=== PATIENT | female | born 1985 | race Caucasian/White ===

== ENCOUNTER 2018-03-08 10:30 | Inpatient (IN) | payer OTHER ==
[~2018-03-08] VITALS: Ht 165.1 cm; Wt 73.0 kg
[2018-03-08] VITALS (13 sets, daily range): BP systolic 81–102; BP diastolic 46–68
[~2018-03-08 10:30] MED LIST: LEVOXYL125 MCG PO
[2018-03-08] MEDS ORDERED: GAS-X125 M1 PO (10:42)
[2018-03-08] MEDS ORDERED: IBUPROFEN 400400 M2 PO (10:42)
[2018-03-08] MEDS ORDERED: TYLENOL EXTRA500 MG PO (10:42)
[2018-03-08 10:59] LABS: CALCIUM 7.3 mg/dL (8.5-10.1); CREATININE 0.4 mg/dL (0.6-1.3)
[2018-03-08 11:03] LABS: ALBUMIN 1.9 g/dL (3.4-5.0); TOTAL BILIRUBIN 12.3 mg/dL (<0.1-1.0); TOTAL PROTEIN 5.9 g/dL (6.4-8.2)
[2018-03-08 11:07] LABS: HEMOGLOBIN 9.2 gm/dL (12.0-15.0); MCV 94.6 fL (80.0-100.0); NUCLEATED RBCS 0 /100WBC
[2018-03-08 11:08] LABS: POTASSIUM 2.3 mmol/L (3.5-5.1)
[2018-03-08 11:09] LABS: HEMATOCRIT 26.5 % (37.0-47.0); MCH 32.9 pg (26.0-34.0); MCHC 34.8 g/dL (28.0-37.0); MPV 10.4 fl. (7.2-11.1); PLATELET COUNT* 131 thou/uL (150-400); RDW-CV 18.6 % (10.5-14.5); WBC 18.3 thou/uL (4.0-11.0)
[2018-03-08 11:37] LABS: ABSOLUTE LYMPHOCYTES 0.7 thou/uL (0.8-5.3); ABSOLUTE MONOCYTES 1.5 thou/uL (0.0-1.2); ABSOLUTE NEUTROPHILS 16.1 thou/uL (1.6-8.1); ATYPICAL LYMPHS 1 %
[2018-03-08 11:38] LABS: CALCIUM 7.1 mg/dL (8.5-10.1); CREATININE 0.4 mg/dL (0.6-1.3)
[2018-03-08 11:38] LABS: ANISOCYTOSIS 1+; PLATELET ESTIMATE ADEQUATE
[2018-03-08 11:40] LABS: POTASSIUM 2.4 mmol/L (3.5-5.1)
[2018-03-08 11:49] LABS: URINE BLOOD TRACE (Negative); URINE CLARITY CLEAR; URINE COLOR DARK YELLOW; URINE GLUCOSE-RANDOM TRACE (Negative); URINE KETONES TRACE (Negative); URINE LEUKOCYTES-REFLEX NEGATIVE (Negative); URINE NITRITE-REFLEX NEGATIVE (Negative); URINE PROTEIN TRACE (Negative); URINE SPECIFIC GRAVITY 1.015 (1.005-1.030)
[2018-03-08 11:50] LABS: ICTOTEST (BILI CONFIRMATORY) Positive (Negative); URINE BILIRUBIN 3+ (Negative)
[2018-03-08 11:52] LABS: APTT 45.5 Seconds (25.0-31.3); INR 2.2; PROTIME 22.7 Seconds (9.20-11.50)
[2018-03-08 13:16] LABS: HEMATOCRIT 22.3 % (37.0-47.0); HEMOGLOBIN 7.8 gm/dL (12.0-15.0)
[2018-03-08 13:19] LABS: CALCIUM 6.7 mg/dL (8.5-10.1); CREATININE 0.4 mg/dL (0.6-1.3); MAGNESIUM 1.3 mg/dL (1.8-2.4)
[2018-03-08 13:22] LABS: POTASSIUM 2.4 mmol/L (3.5-5.1)
[2018-03-08 13:32] LABS: AMMONIA < 10 umol/L (11-32); DIRECT BILIRUBIN 8.5 mg/dL (<0.1-0.3); TOTAL BILIRUBIN 10.4 mg/dL (<0.1-1.0)
[2018-03-08 15:05] LABS: CALCIUM 6.4 mg/dL (8.5-10.1); CREATININE 0.4 mg/dL (0.6-1.3)
[2018-03-08 15:17] LABS: POTASSIUM 2.3 mmol/L (3.5-5.1)
[2018-03-08 17:23] LABS: BF RBC 219 /mm3; BF WBC 51 /mm3
[2018-03-08 17:45] LABS: INR 2.1; PROTIME 21.6 Seconds (9.20-11.50)
[2018-03-08 19:01] LABS: BF LYMPHOCYTES 70 %; BF MONOCYTES 29 %; BF POLYS 1 %
[2018-03-08 19:08] LABS: CLARITY CLEAR; COLOR YELLOW; SOURCE ASCITES; TOTAL VOLUME 460 ml
[2018-03-08 19:55] LABS: HEMATOCRIT 20.5 % (37.0-47.0); HEMOGLOBIN 7.1 gm/dL (12.0-15.0)
[2018-03-08 20:02] LABS: CALCIUM 6.3 mg/dL (8.5-10.1); CREATININE 0.5 mg/dL (0.6-1.3); MAGNESIUM 1.8 mg/dL (1.8-2.4)
[2018-03-08 20:03] LABS: POTASSIUM 3.9 mmol/L (3.5-5.1)
[2018-03-08 23:11] LABS: HEPATITIS B SURFACE AG Negative (Negative)
[2018-03-09] VITALS (63 sets, daily range): BP systolic 74–106; BP diastolic 50–71
[2018-03-09 03:12] LABS: MCH 32.8 pg (26.0-34.0); MCHC 34.5 g/dL (28.0-37.0); MCV 94.8 fL (80.0-100.0); MPV 9.8 fl. (7.2-11.1); RBC 1.95 mil/uL (4.20-5.00); RDW-CV 19.1 % (10.5-14.5); WBC 11.2 thou/uL (4.0-11.0)
[2018-03-09 03:31] LABS: HEMATOCRIT 18.5 % (37.0-47.0); HEMOGLOBIN 6.4 gm/dL (12.0-15.0)
[2018-03-09 03:46] LABS: CALCIUM 6.5 mg/dL (8.5-10.1); CREATININE 0.5 mg/dL (0.6-1.3); POTASSIUM 4.7 mmol/L (3.5-5.1)
[2018-03-09 03:47] LABS: INR 2.5; PROTIME 25.4 Seconds (9.20-11.50)
[2018-03-09 03:50] LABS: MAGNESIUM 1.9 mg/dL (1.8-2.4); TOTAL BILIRUBIN 10.4 mg/dL (<0.1-1.0); TOTAL PROTEIN 4.8 g/dL (6.4-8.2)
[2018-03-09 08:19] LABS: HEMOGLOBIN 6.4 gm/dL (12.0-15.0)
[2018-03-09 08:22] LABS: HEMATOCRIT 18.7 % (37.0-47.0)
--- NOTE | 2018-03-09 08:50 | CON ---
[address] [address] CONSULTATION Name: CARLOS KELLER Room: [address] IN .R.#: [id number] Admission: 03/08/18 Attend Phys: Francisco Taylor MD Discharge: Date of : 81 Report #: [id number] THIS REPORT FOR: //name// CC: Ermelinda Taylor DATE OF SERVICE: 03/08/2018 NEPHROLOGY CONSULTATION CONSULTING PHYSICIAN: Francisco Taylor MD REASON FOR NEPHROLOGY CONSULTATION: Severe hyponatremia. REASON FOR ADMISSION: Jaundice and the patient was feeling very tired and throwing up at least for the last 1 week. HISTORY OF PRESENT ILLNESS: This is a 32-year-old female, who drinks alcohol daily, drinks about 1 liter of wine a day, who was brought in by her because she was having increasing drowsiness, light colored stools and was also throwing up every night. The patient has not eaten anything except for 1 yogurt a day for the last 1 week and has been drinking, and the last alcoholic drink was this morning. On lab check when she presented to the Emergency Room, sodium was found to be 102, potassium was 2.4, bicarbonate was 37, creatinine was 0.4. White count was 18,000, hemoglobin was 9.2, which later dropped to 7.8 and INR was 2.2. She also has a total bilirubin of 10 and direct bilirubin of 8.5 and AST and ALT both are elevated. She has been admitted to the ICU, and Gastroenterology has been consulted for acute liver failure, and Nephrology has been consulted because her sodium was profoundly low, and she has been started on IV fluids. So far, she has received at least 500 mL of normal saline and her sodium has already gone up from 102-105. Potassium and magnesium are also being replaced. Currently, she is just feeling very tired and she also takes ibuprofen for the last 4 days. She was taking 2 tablets a day. The patient has been also reported that her vomitus was brown in color, and the hemoglobin has dropped today in just a few hours. ALLERGIES: No known drug allergies. REVIEW OF SYSTEMS: This is as mentioned in history of present illness, otherwise negative. PAST MEDICAL HISTORY: Includes ankle reconstruction and hypothyroidism. MEDICATIONS: Ibuprofen as needed, acetaminophen, simethicone and levothyroxine. FAMILY HISTORY: Review[place] [address] CONSULTATION Name: CARLOS KELLER Room: [address]#: [id number] Admission: 03/08/18 Attend Phys: Francisco Taylor MD Discharge: Date of : 81 Report #: [id number] SOCIAL HISTORY: She smokes every day. She drinks about 1 liter of wine a day. No illicit drugs. She does not work. PHYSICAL EXAMINATION: VITAL SIGNS: Blood pressure is 86/68, respiratory rate of 17, pulse rate is 115, temperature 36.8, pulse ox 100% on no oxygen. GENERAL: The patient is drowsy, but she is arousable and she is oriented x 3. HEAD, EYES, EARS, NOSE AND THROAT: Mucous membranes are dry. NECK: There is no JVD. CHEST: Clear to auscultation bilaterally. No crackles or wheeze. SKIN: Jaundiced and she also has scleral icterus. CARDIOVASCULAR: S1, S2 normal. No murmurs. ABDOMEN: Distended and is tender all over. There is no rebound or guarding, and bowel sounds are decreased. EXTREMITIES: There is no lower extremity edema, symmetrical lower extremities. NEUROLOGIC: She is moving all her extremities. She has normal motor function, but she is quite drowsy. PSYCHIATRIC: She looks depressed. LABORATORY DATA: Hemoglobin was 7.8, but before that, on admission was 9.2, WBC was 18.3, platelet count was 131. Sodium was 102 at 10:43 and at 2:26 a.m., it is 105 and potassium is 2.3 and magnesium was 1.3, chloride 62, bicarbonate 37 and creatinine 0.4. Alcohol level was 65, total bilirubin 10, direct bilirubin 8.5. Lactic acid 4.7. Other labs are reviewed. IMAGING: Abdominal pelvic CT was reviewed and it shows evidence of hepatomegaly with diffuse liver edema or fatty infiltration. Evidence of portal hypertension, diffuse extensive edema of the wall of the stomach versus distal esophagus and diffuse colonic wall edema and thickening and could be associated with colitis or pseudomembranous colitis, moderate ascites, bibasilar pulmonary infiltrates and possible gallstone wall edema of the gallbladder. ASSESSMENT: 1. Severe hyponatremia, sodium of 102, this is more than likely because of very poor oral intake and excessive alcohol use or fluid intake. She has also been having some nausea and vomiting, so there could be some element of elevated antidiuretic hormone. Workup has been ordered. Sodium was 102 on admission and it has gone up to 105 inn a few hours. The only thing the patient has received is IV fluid so far. 2. Hypokalemia. This is because of malnourished state plus the patient has been vomiting. 3. Metabolic alkalosis and hypochloremia. Her metabolic alkalosis is because she is dry. 4. Acute liver failure, which is likely because of acute alcoholic hepatitis, and Gastroenterology has been consulted for that. [address] [address] CONSULTATION Name: CARLOS KELLER Room: [address] IN M.R.#: [id number] Admission: 03/08/18 Attend Phys: Francisco Taylor MD Discharge: Date of : 81 Report #: [id number] 5. Upper gastrointestinal bleeding, likely variceal bleeding. 6. Coagulopathy due to liver failure. 7. Hypothyroidism. TSH is 0.05, this could be low because of acute sickness, should be followed closely. 8. Alcohol abuse. 9. Diffuse colonic wall edema as well as esophageal edema. Gastroenterology is following. PLAN: 1. Sodium is coming up with IV fluids with normal saline, continue to give normal saline about 100 mL an hour and check sodium level every 3 hours and call if her sodium level is dropping or if it is going up more than 3 points. Strict I's and O's need to be maintained. 2. Insert Dudley catheter. 3. Avoid NSAIDs. NSAIDs also contributed to hyponatremia in her case. 4. Avoid rapid correction of sodium not more than 6-8 mEq in 24-hour time span, but at the same time, sodium should go up, which it is already. 5. Try to maintain her blood pressure in the good range, currently hypotensive, but also because she has liver involvement. 6. Lactic acidosis likely because of liver failure. 7. Check urine osmolality, urine sodium, serum cortisol, serum uric acid along with serum sodium. 8. Keep replacing potassium and magnesium according to protocol. Be mindful that with potassium replacement, sodium does go up. Thank you for the consultation. We will continue to follow along with you. I spent more than 35 minutes in the patient's critical care, reviewing the patient's chart, her orders and medications, placing orders and discussion with the patient's nurse and examining the patient and discussion with the patient's family, and we will continue to follow along with you. <ELECTRONICALLY SIGNED> By: Corinne Milligan MD 03/09/18 0850 [id number] [id number] Milligan MD /nt
[2018-03-09 12:24] LABS: HEMATOCRIT 20.6 % (37.0-47.0); HEMOGLOBIN 7.1 gm/dL (12.0-15.0)
[2018-03-09 14:35] LABS: CALCIUM 6.7 mg/dL (8.5-10.1); CREATININE 0.5 mg/dL (0.6-1.3); MAGNESIUM 1.8 mg/dL (1.8-2.4)
[2018-03-09 14:38] LABS: POTASSIUM 3.5 mmol/L (3.5-5.1)
[2018-03-09 16:12] LABS: BODY FLUID LDH 30 IU/L (()); BODY FLUID PROTEIN 0.6 g/dL (())
[2018-03-09 18:16] LABS: HEMATOCRIT 20.1 % (37.0-47.0)
[2018-03-10] VITALS (45 sets, daily range): BP systolic 83–112; BP diastolic 40–74
[2018-03-10 02:45] LABS: HEMOGLOBIN 7.1 gm/dL (12.0-15.0); MCH 32.5 pg (26.0-34.0); MCHC 35.4 g/dL (28.0-37.0); MCV 91.8 fL (80.0-100.0); MPV 8.8 fl. (7.2-11.1); RBC 2.18 mil/uL (4.20-5.00); RDW-CV 21.4 % (10.5-14.5); WBC 9.7 thou/uL (4.0-11.0)
[2018-03-10 03:03] LABS: INR 2.3
[2018-03-10 03:05] LABS: ALBUMIN 2.3 g/dL (3.4-5.0); CALCIUM 6.8 mg/dL (8.5-10.1); CREATININE 0.4 mg/dL (0.6-1.3); MAGNESIUM 1.7 mg/dL (1.8-2.4); TOTAL PROTEIN 4.3 g/dL (6.4-8.2)
[2018-03-10 03:07] LABS: POTASSIUM 2.7 mmol/L (3.5-5.1)
[2018-03-10 09:39] LABS: BE 4.1 mmol/L (-2 to +3); HCO3 28.1 mmol/L (22.0-26.0); PCO2 39.5 mmHg (35.0-45.0)
[2018-03-10 11:36] LABS: HEMATOCRIT 21.2 % (37.0-47.0); HEMOGLOBIN 7.3 gm/dL (12.0-15.0)
[2018-03-10 14:42] LABS: CREATININE 0.4 mg/dL (0.6-1.3); POTASSIUM 3.6 mmol/L (3.5-5.1)
[2018-03-11] VITALS (58 sets, daily range): BP systolic 91–121; BP diastolic 47–80
[2018-03-11 04:41] LABS: MCH 32.7 pg (26.0-34.0); MCHC 34.7 g/dL (28.0-37.0); MCV 94.3 fL (80.0-100.0); MPV 9.5 fl. (7.2-11.1); NUCLEATED RBCS 0 /100WBC; PLATELET COUNT* 70 thou/uL (150-400); RBC 1.84 mil/uL (4.20-5.00); RDW-CV 22.1 % (10.5-14.5); WBC 13.1 thou/uL (4.0-11.0)
[2018-03-11 04:51] LABS: INR 2.4; PROTIME 24.9 Seconds (9.20-11.50)
[2018-03-11 04:53] LABS: ALBUMIN 2.6 g/dL (3.4-5.0); CALCIUM 7.4 mg/dL (8.5-10.1); CREATININE 0.5 mg/dL (0.6-1.3); HEMATOCRIT 17.4 % (37.0-47.0); POTASSIUM 3.8 mmol/L (3.5-5.1); TOTAL BILIRUBIN 19.6 mg/dL (<0.1-1.0); TOTAL PROTEIN 4.4 g/dL (6.4-8.2)
[2018-03-11 06:48] LABS: ABSOLUTE LYMPHOCYTES 0.4 thou/uL (0.8-5.3); ABSOLUTE NEUTROPHILS 12.7 thou/uL (1.6-8.1); PLATELET ESTIMATE DECREASED; POLYCHROMASIA 1+
[2018-03-11 08:11] LABS: BE 0.5 mmol/L (-2 to +3); HCO3 22.5 mmol/L (22.0-26.0); PCO2 26.2 mmHg (35.0-45.0); PO2 95.6 mmHg (75.0-100.0); pH 7.552 (7.340-7.450)
[2018-03-12] VITALS (65 sets, daily range): BP systolic 80–112; BP diastolic 46–80
[2018-03-12 06:03] LABS: INR 2.1; PROTIME 21.3 Seconds (9.20-11.50)
[2018-03-12 06:08] LABS: ALBUMIN 2.8 g/dL (3.4-5.0); CALCIUM 7.1 mg/dL (8.5-10.1); CREATININE 0.4 mg/dL (0.6-1.3); POTASSIUM 3.1 mmol/L (3.5-5.1); TOTAL BILIRUBIN 19.7 mg/dL (<0.1-1.0); TOTAL PROTEIN 4.6 g/dL (6.4-8.2)
[2018-03-12 07:34] LABS: HEMATOCRIT 22.9 % (37.0-47.0); HEMOGLOBIN 7.8 gm/dL (12.0-15.0); MCH 31.1 pg (26.0-34.0); MCV 91.3 fL (80.0-100.0); MPV 9.1 fl. (7.2-11.1); RBC 2.5 mil/uL (4.20-5.00); RDW-CV 21.3 % (10.5-14.5); WBC 12.5 thou/uL (4.0-11.0)
--- NOTE | 2018-03-12 08:12 | CON ---
[address] [address] CONSULTATION Name: CARLOS KELLER Room: [address] IN .R.#: [id number] Admission: 03/08/18 Attend Phys: Francisco Taylor MD Discharge: Date of : 81 Report #: [id number] THIS REPORT FOR: //name// CC: Ermelinda Taylor DATE OF SERVICE: 03/10/2018 REASON FOR CONSULTATION: Respiratory failure. HISTORY OF PRESENT ILLNESS: The patient was intubated, sedated during my evaluation. I reviewed medical records and discussed with medical staff. This is a 32-year-old female patient who was admitted to this facility on 03/08/2018 when she presented with jaundice and weakness of 1 week duration. Apparently, she drinks alcohol daily, it is estimated she drinks 1 liter of wine daily. She was brought in by her because of increased drowsiness, less responsive, light colored stool and vomiting with poor oral intake. Apparently upon hospitalization, her sodium was extremely low at 102 and over the course of hospitalization, her breathing deteriorated. She was found to be in liver failure and overnight last night, she was on BiPAP, slowly worsening and her O2 needs increased up to 90%. Also, per the staff, she vomited multiple times during the night and they suspect that she aspirated while she was on the BiPAP. This morning, she was having also some blood in her mouth. The patient was intubated this morning. Initially, they had difficulty oxygenating the patient, they had to bag her and place her on the RT. They suctioned a lot of bile-looking fluid from the airways. By the time I saw her, she was on the vent on 100% with assist control ventilation, rate of 30 and tidal volume of 100 in addition to PEEP of 10. She already received sedation for the intubation, had some blood around the oral cavity. Also, reviewing her record indicated she had severe electrolyte disturbances including magnesium and potassium. ALLERGIES: Per the record, none. REVIEW OF SYSTEMS: Unobtainable at this point due to the patient's condition. PAST MEDICAL HISTORY: Includes ankle surgery and hypothyroidism. PAST SURGICAL HISTORY: Ankle surgery as above. SOCIAL HISTORY: She smokes 1/4 pack of cigarettes per day and she drinks alcohol daily. No mention of drug abuse in her records. HOME MEDICATIONS: She is supposed to be on ibuprofen, Tylenol, Gas-X [place] [address] CONSULTATION Name: CARLOS KELLER Room: [address]#: [id number] Admission: 03/08/18 Attend Phys: Francisco Taylor MD Discharge: Date of : 81 Report #: [id number] PHYSICAL EXAMINATION: GENERAL: During my evaluation, she was on vasopressor and several mcg of Levophed. VITAL SIGNS: Blood pressure 100 systolic on the vent. ET tube in place, some blood in the oral cavity. Thin lady, low weight. BMI of 18.5 kilograms per square meter. Her temperature is 36.1. Her breathing with the vent 30 times a minute, pulse rate of 117. HEENT: Pupils sluggish reaction to light, jaundiced. External ear looks normal. Oral cavity, some blood around oral cavity with no active bleeding. ET tube in place, some yellowish secretion in the ET tube. NECK: Supple, with right IJ. CHEST: Air movement bilaterally with crackles. No definite wheezes. ABDOMEN: Distended, no tenderness appreciated. No masses felt. HEART: S1, S2, tachycardic. LOWER EXTREMITIES: Some edema noted, trace. No calf tenderness. SKIN: Some bruises noted. No rash. PSYCHIATRIC: Mood and affect could not be evaluated. NEUROLOGIC: Could not be evaluated. LABORATORY DATA: Her imaging was reviewed. Her initial chest x-ray did not show acute pathology; however, a followup chest x-ray started to show progressive signs of pulmonary edema, vascular congestion. Today, there was an air bronchogram after intubation. Her white blood count is 9.7, hemoglobin 7.1, platelet of 52. Of note, her white blood count upon hospitalization was 18.3 with hemoglobin of 9.2, platelets 131. Her INR is 2.3. Her potassium is 4 this morning, although it was noted to be low during this hospitalization. BUN of 5, creatinine of 0.4. Also, alcohol level on 03/08/2018 was 65 mg/dL. IMPRESSION: 1. Acute hypoxic respiratory failure. 2. Pulmonary infiltrate. 3. Suspected aspiration into the airways. 4. Pneumonia. 5. History of smoking. 6. Acute liver failure. 7. Alcohol abuse. 8. Alcohol withdrawal. 9. Severe hyponatremia. 10. Severe electrolyte disturbances. 11. Mental status change. 12. Portal hypertension. 13. Ascites. The patient at this point is in critical condition. We had difficulty initially [facility] [address] [place] [address] CONSULTATION Name: CARLOS KELLER Room: [address] IN M.R.#: [id number] Admission: 03/08/18 Attend Phys: Francisco Taylor MD Discharge: Date of : 81 Report #: [id number] oxygenating her. My concern is that she may develop ARDS with significant aspiration over time. At this point, we need to monitor fluid status with the fluid overload. She is on vasopressor, so we need to start weaning vasopressors down, recommend minimizing IV fluids if possible. She will be on scheduled nebulization treatment. She will be on Zosyn. GI prophylaxis and DVT prophylaxis. I agree with the benzodiazepine and fentanyl for sedation given the significant amount of oxygen that she is on. I would hold off on sedation vacation until oxygenation improves. We will need to follow up on the chest x-ray and ABGs. Due to high peak pressure, I changed her tidal volume and rate down and I changed her PEEP to 8. CONDITION: Critical. PROGNOSIS: Guarded. CRITICAL CARE TIME: 35 minutes. <ELECTRONICALLY SIGNED> By: Flor Ma MD 03/12/18 0812 0857 [id number] Nicholas MD /mauro
[2018-03-12 10:45] LABS: BE -2.6 mmol/L (-2 to +3); HCO3 22.6 mmol/L (22.0-26.0); PCO2 40.6 mmHg (35.0-45.0); pH 7.363 (7.340-7.450)
[2018-03-12 13:06] LABS: ANA INTERPRETATION Negative (Negative)
[2018-03-12 15:07] LABS: PO2 59.1 mmHg (75.0-100.0)
[2018-03-13] VITALS (78 sets, daily range): BP systolic 89–114; BP diastolic 57–82
[2018-03-13 05:15] LABS: HEMATOCRIT 23.8 % (37.0-47.0); MCH 30.7 pg (26.0-34.0); MCHC 33.4 g/dL (28.0-37.0); MPV 8.6 fl. (7.2-11.1); RBC 2.59 mil/uL (4.20-5.00); RDW-CV 21.3 % (10.5-14.5); WBC 12.6 thou/uL (4.0-11.0)
[2018-03-13 05:31] LABS: PROTIME 20.2 Seconds (9.20-11.50)
[2018-03-13 05:37] LABS: CALCIUM 7.9 mg/dL (8.5-10.1); CREATININE 0.4 mg/dL (0.6-1.3); MAGNESIUM 2.1 mg/dL (1.8-2.4); POTASSIUM 4.6 mmol/L (3.5-5.1); TOTAL BILIRUBIN 17.5 mg/dL (<0.1-1.0); TOTAL PROTEIN 4.8 g/dL (6.4-8.2)
[2018-03-14] VITALS (62 sets, daily range): BP systolic 85–111; BP diastolic 57–80
[2018-03-14 04:55] LABS: HEMATOCRIT 23.2 % (37.0-47.0); MCH 32.2 pg (26.0-34.0); MCHC 34.5 g/dL (28.0-37.0); MCV 93.4 fL (80.0-100.0); MPV 8.8 fl. (7.2-11.1); RBC 2.49 mil/uL (4.20-5.00); RDW-CV 21.4 % (10.5-14.5); WBC 12.3 thou/uL (4.0-11.0)
[2018-03-14 05:25] LABS: ALBUMIN 3.4 g/dL (3.4-5.0); CALCIUM 8.7 mg/dL (8.5-10.1); CREATININE 0.4 mg/dL (0.6-1.3); MAGNESIUM 2.1 mg/dL (1.8-2.4); POTASSIUM 4.4 mmol/L (3.5-5.1); TOTAL BILIRUBIN 17.3 mg/dL (<0.1-1.0); TOTAL PROTEIN 4.9 g/dL (6.4-8.2)
[2018-03-14 05:37] LABS: PROTIME 20.9 Seconds (9.20-11.50)
[2018-03-14 08:06] LABS: BE -1.4 mmol/L (-2 to +3); HCO3 21.1 mmol/L (22.0-26.0)
[2018-03-14 08:07] LABS: PO2 170.4 mmHg (75.0-100.0)
[2018-03-14 10:50] LABS: BE -1.4 mmol/L (-2 to +3); HCO3 22.4 mmol/L (22.0-26.0); PCO2 34.2 mmHg (35.0-45.0); pH 7.435 (7.340-7.450)
[2018-03-14 10:51] LABS: PO2 149.7 mmHg (75.0-100.0)
[2018-03-14 19:27] LABS: APTT 40.1 Seconds (25.0-31.3); INR 1.8; PROTIME 18.1 Seconds (9.20-11.50)
[2018-03-15] VITALS (35 sets, daily range): BP systolic 89–118; BP diastolic 57–86
[2018-03-15 06:13] LABS: INR 1.8; PROTIME 18.7 Seconds (9.20-11.50)
[2018-03-15 06:16] LABS: ALBUMIN 3.1 g/dL (3.4-5.0); CALCIUM 8.6 mg/dL (8.5-10.1); CREATININE 0.5 mg/dL (0.6-1.3); MAGNESIUM 2.2 mg/dL (1.8-2.4); PHOSPHORUS* 2.4 mg/dL (2.5-4.9); POTASSIUM 3.7 mmol/L (3.5-5.1); TOTAL BILIRUBIN 16.2 mg/dL (<0.1-1.0); TOTAL PROTEIN 4.9 g/dL (6.4-8.2)
[2018-03-15 06:18] LABS: HEMATOCRIT 21.1 % (37.0-47.0); HEMOGLOBIN 7.1 gm/dL (12.0-15.0); MCH 31.9 pg (26.0-34.0); MCHC 33.7 g/dL (28.0-37.0); MCV 94.7 fL (80.0-100.0); MPV 10.3 fl. (7.2-11.1); RBC 2.22 mil/uL (4.20-5.00); RDW-CV 21.4 % (10.5-14.5); WBC 12.6 thou/uL (4.0-11.0)
[2018-03-15 08:43] LABS: BE -0.4 mmol/L (-2 to +3); HCO3 23.9 mmol/L (22.0-26.0); PCO2 37.6 mmHg (35.0-45.0); PO2 77.7 mmHg (75.0-100.0); pH 7.421 (7.340-7.450)
[2018-03-15 17:33] LABS: HEMATOCRIT 25.9 % (37.0-47.0); HEMOGLOBIN 8.7 gm/dL (12.0-15.0)
[2018-03-16] VITALS (43 sets, daily range): BP systolic 87–129; BP diastolic 55–83
[2018-03-16 03:58] LABS: HEMATOCRIT 24.9 % (37.0-47.0); HEMOGLOBIN 8.4 gm/dL (12.0-15.0); MCH 31.7 pg (26.0-34.0); MCHC 33.8 g/dL (28.0-37.0); MCV 93.7 fL (80.0-100.0); RBC 2.66 mil/uL (4.20-5.00); RDW-CV 18.6 % (10.5-14.5); WBC 11.2 thou/uL (4.0-11.0)
[2018-03-16 04:11] LABS: ALBUMIN 3.2 g/dL (3.4-5.0); CALCIUM 8.7 mg/dL (8.5-10.1); CREATININE 0.4 mg/dL (0.6-1.3); PHOSPHORUS* 1.9 mg/dL (2.5-4.9); POTASSIUM 3.5 mmol/L (3.5-5.1); TOTAL BILIRUBIN 15.3 mg/dL (<0.1-1.0); TOTAL PROTEIN 4.8 g/dL (6.4-8.2)
[2018-03-16 04:12] LABS: APTT 42.2 Seconds (25.0-31.3); PROTIME 20.2 Seconds (9.20-11.50)
[2018-03-16 06:30] LABS: BE 1.9 mmol/L (-2 to +3); HCO3 26.9 mmol/L (22.0-26.0); PCO2 44.3 mmHg (35.0-45.0); pH 7.402 (7.340-7.450)
[2018-03-16 06:39] LABS: PO2 56.5 mmHg (75.0-100.0)
[2018-03-16 13:01] LABS: APTT 37.3 Seconds (25.0-31.3); INR 1.8; PROTIME 18.7 Seconds (9.20-11.50)
--- NOTE | 2018-03-16 16:16 | 2DMMODE ---
[place] [address] 2 D/M-MODE ECHOCARDIOGRAM Name: CARLOS KELLER Room: 006-P [facility] IN [facility]#: [id number] Admission: 03/08/18 Attend Phys: Francisco Taylor, Discharge: Date of : 81 Date of Service: 03/16/18 1616 Report #: [id number] THIS REPORT FOR: //name// APPROVED REPORT Study performed: 03/16/2018 14:46:14 EXAM: Comprehensive 2D, Doppler, and color-flow Echocardiogram Patient Location: In-Patient Room #: 006 Status: routine BSA: 1.75 HR: 137 bpm BP: 123/773 mmHg Rhythm: NSR Other Information Study Quality: Good Indications Cardiomyopathy liver failure, GI bleed, on vent 2D Dimensions IVSd: 10.04 (7-11mm) LVOT Diam: 19.73 (18-24mm) LVDd: 49.27 mm PWd: 7.12 (7-11mm) Ascending Ao: 29.82 (22-36mm) LVDs: 29.92 (25-40mm) Aortic Root: 30.24 mm Volumes Left Atrial Volume (Systole) LA ESV Index: 23.50 mL/m2 Aortic Valve AoV Peak Hang.: 1.77 m/s AO Peak Gr.: 12.48 mmHg LVOT Max P.28 mmHg AO Mean Gr.: 6.63 mmHg LVOT Mean P.79 mmHg LVOT Max V: 1.44 m/s AO V2 VTI: 26.94 cm LVOT Mean V: 0.88 m/s DANIEL (VTI): 2.41 cm2 LVOT V1 VTI: 21.27 cm Pulmonary Valve PV Peak Hang.: 1.05 m/s PV Peak Gr.: 4.42 [place] [address] 2 D/M-MODE ECHOCARDIOGRAM Name: CARLOS KELLER Room: [address] IN ..#: [id number] Admission: 03/08/18 Attend Phys: Francisco Taylor, Discharge: Date of : 81 Date of Service: 03/16/18 1616 Report #: [id number] Tricuspid Valve RAP Estimate: 5.00 mmHg TR Peak Gr.: 29.85 mmHg RVSP: 35.00 mmHg PA Pressure: 35.00 mmHg Left Ventricle The left ventricle is normal size. There is normal LV segmental wall motion. There is normal left ventricular wall thickness. Left ventricular systolic function is normal. The left ventricular ejection fraction is within the normal range. LVEF is 65%. This study is not technically sufficient to allow evaluation of the LV diastolic function. Right Ventricle The right ventricle is normal size. The right ventricular systolic function is normal. Atria The left atrium size is normal. The right atrium size is normal. Aortic Valve Mild thickening of one leaflet No aortic regurgitation is present. There is no aortic valvular stenosis. Mitral Valve The mitral valve is normal in structure. Mild mitral regurgitation. No evidence of mitral valve stenosis. Tricuspid Valve The tricuspid valve is normal in structure. Mild tricuspid regurgitation. Mild pulmonary hypertension. Pulmonic Valve The pulmonary valve is normal in structure. There is no pulmonic valvular regurgitation. Great Vessels The aortic root is normal in size. IVC is normal in size and collapses >50% with inspiration. Pericardium There is no pericardial effusion. Left pleural effusion. <Conclusion> [place] [address] 2 D/M-MODE ECHOCARDIOGRAM Name: CARLOS KELLER Room: [address] IN ..#: [id number] Admission: 03/08/18 Attend Phys: Francisco Taylor, Discharge: Date of : 81 Date of Service: 03/16/18 1616 Report #: [id number] The left ventricle is normal size. There is normal left ventricular wall thickness. Left ventricular systolic function is normal. The left ventricular ejection fraction is within the normal range. LVEF is 65%. The right ventricle is normal size. The left atrium size is normal. Mild thickening of one aortic leaflet No aortic regurgitation is present. There is no aortic valvular stenosis. The mitral valve is normal in structure. Mild mitral regurgitation. The tricuspid valve is normal in structure. Mild tricuspid regurgitation. Mild pulmonary hypertension. IVC is normal in size and collapses >50% with inspiration. There is no pericardial effusion. There is normal LV segmental wall motion. <ELECTRONICALLY SIGNED> By: Elliot Lizama MD, FACC 03/16/18 [phone] Elliot Lizama MD, FACC /INF
[2018-03-17] VITALS (54 sets, daily range): BP systolic 80–122; BP diastolic 47–88
[2018-03-17 05:39] LABS: HEMATOCRIT 23.9 % (37.0-47.0); HEMOGLOBIN 8.1 gm/dL (12.0-15.0); MCH 32.5 pg (26.0-34.0); MCHC 33.6 g/dL (28.0-37.0); MCV 96.7 fL (80.0-100.0); MPV 9.4 fl. (7.2-11.1); RBC 2.48 mil/uL (4.20-5.00); RDW-CV 20.1 % (10.5-14.5); WBC 12.2 thou/uL (4.0-11.0)
[2018-03-17 05:47] LABS: APTT 40.8 Seconds (25.0-31.3); PROTIME 20.9 Seconds (9.20-11.50)
[2018-03-17 06:05] LABS: ALBUMIN 3.3 g/dL (3.4-5.0); ALKALINE PHOSPHATASE 106 U/L (46-116); ANION GAP 8 mmol/L (7-16); BUN 18 mg/dL (7-18); CALCIUM 8.8 mg/dL (8.5-10.1); CHLORIDE 113 mmol/L (98-107); CO2 28 mmol/L (21-32); CREATININE 0.4 mg/dL (0.6-1.3); GLUCOSE 124 mg/dL (70-99); POTASSIUM 3.5 mmol/L (3.5-5.1); SGOT 155 U/L (15-37); SGPT 59 U/L (30-65); SODIUM 149 mmol/L (136-145); TOTAL BILIRUBIN 17.5 mg/dL (<0.1-1.0); TOTAL PROTEIN 5.1 g/dL (6.4-8.2); TROPONIN-I LEVEL <0.06 ng/mL (<0.06)
--- NOTE | 2018-03-17 07:34 | CON ---
[address] [address] CONSULTATION Name: CARLOS KELLER Room: [address] IN .R.#: [id number] Admission: 03/08/18 Attend Phys: Francisco Taylor MD Discharge: Date of : 81 Report #: [id number] THIS REPORT FOR: //name// CC: Ermelinda Taylor MD DATE OF SERVICE: 03/10/2018 REASON FOR CONSULTATION: Anemia and thrombocytopenia with alcoholic cirrhosis and ascites. HISTORY OF PRESENT ILLNESS: The patient is a 32-year-old who was brought in by family with abdominal distention and jaundice. Per at the bedside, the patient has been in her usual status state of health. She has an extensive history of alcohol use, did drink a fifth of vodka for many years and recently has cut down to regular wine at least a bottle a day. She has been complaining of more generalized weakness and fatigue and abdominal distention, which brought her down to the Emergency Room. In the Emergency Room, she had severe abnormalities including hyponatremia with abnormal liver function tests with elevated bilirubin levels. She is currently on vent. She underwent paracentesis earlier. GI and Nephrology consultants are following her closely. She does not have any obvious concern for bleeding as such, but did have blood work including low platelets and anemia. Did require a unit of plasma so far and 1 unit of packed RBC was transfused. A 12-point review of system was reviewed, which was very limited. Per family, the patient did have some occasional nosebleeds, but none recently. No episodes of hematemesis. She has an NG tube, which had some blood-tinged secretions in the suction to the wall. PAST MEDICAL HISTORY: History of hypothyroidism/Chris's, on levothyroxine. PAST SURGICAL HISTORY: Right ankle surgery many years ago. SOCIAL HISTORY: As mentioned, the patient did drink heavily at least for the last 10 years according to her who is to her for 10 years. She did drink heavy alcohol including vodka for like many years. Recently for the last few months she has cut down to a bottle of wine on his insistence, according to him. She does also smoke at least half a pack of cigarettes a day. Denies any recreational or illicit drug use. FAMILY HISTORY: No history of cancers. ALLERGIES: No known drug allergies. CURRENT MEDICATIONS: Include Solu-Medrol, Zosyn, furosemide, midazolam, [place] [address] CONSULTATION Name: CARLOS KELLER Jatinder Room: [address] IN [facility]#: [id number] Admission: 03/08/18 Attend Phys: Francisco Taylor MD Discharge: Date of : 81 Report #: [id number] fentanyl, multivitamin, Protonix, lorazepam, levothyroxine, midodrine, rifaximin, she did receive vitamin K and lactulose, and sodium repletion. LABORATORY DATA: On admission, WBC was 18.3, hemoglobin 9.2, hematocrit 26.5, platelets are 131 with absolute neutrophil count of 16.1. Repeat blood work done today includes WBC 9.7, hemoglobin 7.1, hematocrit 20.0, MCV 91.8 and platelets of 52,000. Sodium on admission was 102, potassium 2.3, chloride 58, bicarbonate 39, anion gap 5, BUN 4, creatinine 0.4, glucose 125, calcium 7.3, total bilirubin was 12.3 with AST 341, ALT 66, alkaline phosphatase 305, total protein 5.1, albumin 1.9 and lipase 306. Sodium today was 119. Direct bilirubin was elevated at 8.5. Ammonia level less than 10. INR was 2.3, PT 23, fibrinogen was 102 with D-dimer 0.61. Urine did reveal 3+ bilirubin with negative leukocyte esterase and negative nitrites. Fluid studies from the ascitic fluid did reveal some protein and LDH was 30, WBC 51. Hepatitis workup has been negative. Serum alcohol on admission was 65, less than 10 at this point. Fibrinogen on 03/08/2018 was 102. IMAGING STUDIES: The patient had a CT of the abdomen on 03/08/2018, which did reveal hepatomegaly with liver edema or fatty infiltration with recanalization of the umbilical vein consistent with portal hypertension. Diffuse extensive edema of the stomach wall and esophagus also noted. Diffuse colonic wall edema and thickening also noted. There were also possible gallstones with wall edema of the gallbladder. Chest x-ray did show moderate to extensive bilateral infiltrates. ET tube in position. PHYSICAL EXAMINATION: VITAL SIGNS: Temperature of 36.1, heart rate 104, respiratory rate 26, oxygenation 100% on vent and blood pressure is 89/45. GENERAL: No acute distress. HEENT: Mucous membranes are icterus. The patient is on a vent, on sedation. NECK: Supple. LUNGS: Decreased breath sounds in the bases. ABDOMEN: Obese, soft with ascitic fluid. EXTREMITIES: She does have some pitting edema in bilateral lower extremities. NEUROLOGIC: Unable to assess as the patient on vent and sedated. ASSESSMENT AND PLAN: The patient is a 32-year-old with extensive alcohol use with concern for cirrhosis, hepatic encephalopathy, admitted with abdominal distention, found to have ascitic fluid in the abdomen. She does have severe [facility] [address] [place] [address] CONSULTATION Name: CARLOS KELLER Room: [address] IN M.R.#: [id number] Admission: 03/08/18 Attend Phys: Francisco Taylor MD Discharge: Date of : 81 Report #: [id number] electrolyte abnormalities including hyponatremia, which is being corrected slowly. She has labs suggestive of disseminated intravascular coagulation and possibly secondary to liver disease. She is being currently treated. She does not have any obvious concern for bleeding as such, but would recommend supporting with transfusions to keep the platelet count greater than 50 and also the fibrinogen at least 100. She did receive some vitamin K earlier. I will recheck DIC panel again. I do feel this is most likely secondary to liver disease and some low-grade DIC cannot be ruled out at this point. The patient is critically sick and discussed this with the at the bedside. Please contact us with any further questions. <ELECTRONICALLY SIGNED> By: Sonu Fowler MD 03/17/18 0734 1418 [id number] Larson MD /nt
--- NOTE | 2018-03-17 09:23 | CON ---
[address] [address] CONSULTATION Name: ARIANNACARLOS M Room: [address] IN M.R.#: [id number] Admission: 03/08/18 Attend Phys: Francisco Taylor MD Discharge: Date of : 81 Report #: [id number] THIS REPORT FOR: //name// CC: Ermelinda Taylor DATE OF SERVICE: 03/16/2018 ATTENDING PHYSICIAN: Jake Last MD. REASON FOR EVALUATION: Sepsis complicated by multiorgan failure including pneumonitis and chronic ventilatory support at this point, consumptive coagulopathy and liver failure with marked hyperbilirubinemia. HISTORY OF PRESENT ILLNESS: Chart reviewed, patient examined. This is a 32-year-old with hypothyroidism, was admitted in extremis on 03/08/2018. It is clear she was in liver failure with bilirubin peaked at 19.6. She has a consumptive coagulopathy as a complication, is felt that she had aspirated. She was intubated, now on mechanical ventilatory support. She is requiring pressors as well. On the course of the hospitalization, she has had several cultures collected, all of which have been unrevealing, although she has been on empiric therapy, most recently for last several days with piperacillin and tazobactam. At this point, her eyes are open, although there is no clear evidence she is tracking due to concern about ongoing sepsis. ID consultation was requested. ALLERGIES: None known. CURRENT MEDICATIONS: Include lorazepam, permethrin, acetylcysteine, metoclopramide, Zosyn, levothyroxine, vitamin K. lactulose, rifaximin. PAST MEDICAL HISTORY: As described above, hypothyroidism, ankle reconstruction. SOCIAL HISTORY: Smokes half pack a day for the last 6 years apparently, daily ethanol. FAMILY HISTORY: Noncontributory. REVIEW OF SYSTEMS: Unobtainable. PHYSICAL EXAMINATION: GENERAL: She is critically ill appearing. She is undernourished. She is markedly jaundiced. She is maintained in a supine position, has endotracheal tube as well as an NG tube. She has fecal management too. She has a Dudley catheter. VITAL SIGNS: Temperature 98.4, pulse 111, respirations 14, blood pressure 94/59 [place] [address] CONSULTATION Name: CARLOS KELLER Room: [address] IN [facility]#: [id number] Admission: 03/08/18 Attend Phys: Francisco Taylor MD Discharge: Date of : 81 Report #: [id number] SKIN: Jaundiced. HEENT: Multiple tubes in place. NECK: Appears to be supple. LUNGS: Few scattered coarse breath sounds. HEART: Tachycardic. I do not appreciate a murmur. ABDOMEN: Appears to be soft. There are no overt peritoneal signs, although she is quite comfortable during the exam, somewhat grimacing. GENITOURINARY: Deferred. RECTAL: Deferred. LABORATORY DATA: Most recent chest x-ray showed bilateral infiltrates without evidence of pleural fluid. There is no pneumothorax. They are primarily perihilar and medial. ABGs, pH 7.402, pCO2 of 44.3, pO2 of 56.5 and that is on FiO2 of 30% during a trial. PT of 20.2, INR of 2.0. Fibrinogen low at 86. D-dimer 1.64. Electrolytes: Sodium 143, potassium 3.5, chloride 110, bicarbonate is 29, anion gap of 4, BUN and creatinine 23 and 0.4, glucose of 115, AST of 165, ALT of 50. Total bilirubin 15.3, that is down from 19. Total protein of 4.8, albumin of 3.2. Estimated GFR of 183. CBC: White count 11.2, H and H 8.4 and 24.9, platelets of 41. Sputum culture pending. Previous blood cultures negative. Lactic acid from 03/15/2018 was 2.6. ASSESSMENT: Multiorgan failure. The patient with end-stage liver disease apparently due to ethanolism, certainly at risk for nosocomial related infectious complications. We will repeat the blood cultures and adjust therapy. Would be worried about some degree of adverse drug effect as well including thrombocytopenia. It is difficult to ascertain the degree of reversibility in this setting, who is young at this point. Thank you, we will follow. <ELECTRONICALLY SIGNED> By: Abdulkadir Shelton MD 03/17/18 0923 1223 [id number] Shelton MD /nt
--- NOTE | 2018-03-17 13:19 | CON ---
[address] [address] CONSULTATION Name: CARLOS KELLER Room: [address] IN M.R.#: [id number] Admission: 03/08/18 Attend Phys: Francisco Taylor MD Discharge: Date of : 81 Report #: [id number] THIS REPORT FOR: //name// CC: Ermelinda MULLINS MD The patient is a 32-year-old female. Neurology service has been asked to see for encephalopathy. HISTORY OF PRESENT ILLNESS: The patient was admitted to [facility] on 03/08/2018 through the Emergency Room. At that time, the patient was complaining of abdominal pain and distention. She had also noticed a yellow complexion and bleeding from her gums. She had not been able to eat solid food for 1 week. The patient typically drinks one bottle of alcohol daily. Her last episode of alcohol withdrawal was 1 year previously. She also had a history of hypothyroidism and had run out of levothyroxine 3 days prior to hospital admission. The patient was noted to be in acute liver failure. She had to be intubated after going into shock. The patient has been intubated since that time. She is now on the ventilator and has no purposeful movements and does not follow commands. She is currently seen by Pulmonary and has had improvements in oxygen needs. The patient appears to be in end-stage liver disease with superimposed alcoholic hepatitis from years of heavy alcohol abuse. PAST MEDICAL HISTORY: Hypothyroidism, alcohol abuse. PAST SURGICAL HISTORY: Ankle reconstruction. MEDICATIONS: None. ALLERGIES: None. PHYSICAL EXAMINATION: VITAL SIGNS: Temperature 36.9, pulse rate 111, respiratory rate 14, blood pressure 94/59, bedside pulse oximetry 91% on the ventilator. NEUROLOGIC: Cranial nerves 2-12 are grossly intact. Motor exam demonstrates nonpurposeful movements of the upper and lower extremities. Coordination and gait cannot be tested. LABORATORY DATA: White blood cell count 11.2, hemoglobin 8.4, hematocrit 24.9, platelet count 41,000. PT 18.7. Fibrinogen 127. Blood gas pH 7.4, pO2 of 56.5, pCO2 26.9, oxygen saturation 87%. Chemistry: Sodium 143, potassium 3.5, chloride 110, carbon dioxide 29, BUN 23, creatinine 0.4, glucose 115, calcium 8.7, phosphorus 1.9, magnesium 2, total bilirubin 15.3. GGT 365, AST 165, ALT 50, alkaline phosphatase 101. Ammonia level less than 10 from 03/08/2018. TSH 0.053, free T4 1.29. [place] [address] CONSULTATION Name: CARLOS KELLER Room: [address] IN ..#: [id number] Admission: 03/08/18 Attend Phys: Francisco Taylor MD Discharge: Date of : 81 Report #: [id number] IMPRESSION AND PLAN: The patient is encephalopathic. She has not had a recent ammonia level, I am going to repeat this. However, the EEG shows only moderate slowing and does not show triphasic waves, which are typically seen in hepatic encephalopathy. The patient has not had an imaging study of the brain and I am going to order a CT scan. This can be done as long as the patient is stable cardiovascularly, which may not be possible at this moment. Given the patient's comorbid conditions, it may be difficult for her to recover completely from her current illness. I will continue to follow the patient with you. <ELECTRONICALLY SIGNED> By: Radha Portillo DO 03/17/18 1319 1327 [id number] Portillo DO /nt
--- NOTE | 2018-03-17 14:25 | EEG ---
[address] [address] EEG STUDY REPORT Name: CARLOS KELLER Jatinder Room: [address] IN ..#: [id number] Admission: 03/08/18 Attend Phys: Francisco Taylor MD Discharge: Date of : 81 Report #: [id number] THIS REPORT FOR: //name// CC: Ermelinda Taylor MD The patient is a 32-year-old female with altered mental status. An EEG is requested for further evaluation. DESCRIPTION: The record consists of a poorly developed 5 Hz posterior dominant rhythm. Muscle artifact is seen intermittently throughout the recording making the posterior dominant rhythm difficult to see at times. Photic stimulation is not activating. No focal abnormalities or epileptiform discharges are noted. No triphasic waves, which are seen in hepatic encephalopathy are noted. IMPRESSION: This is an abnormal adult record consistent with moderate diffuse cerebral dysfunction and is a nonspecific finding. No focal abnormalities or epileptiform discharges are noted. There is no evidence of subclinical seizure disorder. <ELECTRONICALLY SIGNED> By: Radha Portillo DO 03/17/18 1425 1248 [id number] Portillo DO /nt
[2018-03-18] VITALS (23 sets, daily range): BP systolic 83–127; BP diastolic 45–91
[2018-03-18 04:12] LABS: HEMATOCRIT 22.9 % (37.0-47.0); HEMOGLOBIN 7.5 gm/dL (12.0-15.0); MCH 32.5 pg (26.0-34.0); MCV 98.6 fL (80.0-100.0); MPV 9.9 fl. (7.2-11.1); RBC 2.32 mil/uL (4.20-5.00); RDW-CV 21.8 % (10.5-14.5); WBC 13.6 thou/uL (4.0-11.0)
[2018-03-18 04:25] LABS: APTT 40.9 Seconds (25.0-31.3); INR 2.1; PROTIME 21.7 Seconds (9.20-11.50)
[2018-03-18 04:27] LABS: ALBUMIN 3.5 g/dL (3.4-5.0); CALCIUM 8.8 mg/dL (8.5-10.1); CREATININE 0.4 mg/dL (0.6-1.3); MAGNESIUM 2.1 mg/dL (1.8-2.4); POTASSIUM 3.8 mmol/L (3.5-5.1); TOTAL BILIRUBIN 17.2 mg/dL (<0.1-1.0)
[2018-03-19] VITALS (18 sets, daily range): BP systolic 81–127; BP diastolic 33–80
[2018-03-19 05:52] LABS: HEMATOCRIT 22.4 % (37.0-47.0); HEMOGLOBIN 7.3 gm/dL (12.0-15.0); MCH 32.6 pg (26.0-34.0); MCHC 32.5 g/dL (28.0-37.0); MCV 100.4 fL (80.0-100.0); MPV 10.2 fl. (7.2-11.1); RBC 2.23 mil/uL (4.20-5.00); RDW-CV 24.7 % (10.5-14.5)
[2018-03-19 06:05] LABS: APTT 36.7 Seconds (25.0-31.3); INR 1.8; PROTIME 18.7 Seconds (9.20-11.50)
[2018-03-19 06:12] LABS: ALBUMIN 3.5 g/dL (3.4-5.0); CALCIUM 8.9 mg/dL (8.5-10.1); CREATININE 0.4 mg/dL (0.6-1.3); MAGNESIUM 2.1 mg/dL (1.8-2.4); POTASSIUM 3.5 mmol/L (3.5-5.1); TOTAL BILIRUBIN 16.2 mg/dL (<0.1-1.0); TOTAL PROTEIN 5.1 g/dL (6.4-8.2)
[2018-03-19 06:30] LABS: BE 3.1 mmol/L (-2 to +3); HCO3 28.8 mmol/L (22.0-26.0); PO2 92.5 mmHg (75.0-100.0); pH 7.376 (7.340-7.450)
[2018-03-19 06:31] LABS: PCO2 50.3 mmHg (35.0-45.0)
[2018-03-20] VITALS (21 sets, daily range): BP systolic 97–113; BP diastolic 60–74
[2018-03-20 03:44] LABS: HEMATOCRIT 21.4 % (37.0-47.0); HEMOGLOBIN 7.2 gm/dL (12.0-15.0); MCH 33.5 pg (26.0-34.0); MCHC 33.6 g/dL (28.0-37.0); MCV 99.7 fL (80.0-100.0); MPV 10.8 fl. (7.2-11.1); RBC 2.15 mil/uL (4.20-5.00); RDW-CV 27.4 % (10.5-14.5); WBC 10.3 thou/uL (4.0-11.0)
[2018-03-20 03:58] LABS: APTT 36.9 Seconds (25.0-31.3); INR 1.9; PROTIME 19.6 Seconds (9.20-11.50)
[2018-03-20 04:05] LABS: ALBUMIN 3.4 g/dL (3.4-5.0); CALCIUM 9.2 mg/dL (8.5-10.1); CREATININE 0.4 mg/dL (0.6-1.3); MAGNESIUM 1.9 mg/dL (1.8-2.4); TOTAL BILIRUBIN 16.3 mg/dL (<0.1-1.0)
[2018-03-20 11:59] LABS: BE 4.4 mmol/L (-2 to +3); HCO3 27.9 mmol/L (22.0-26.0); PCO2 36.4 mmHg (35.0-45.0); pH 7.502 (7.340-7.450)
[2018-03-21] VITALS (22 sets, daily range): BP systolic 88–121; BP diastolic 46–70
[2018-03-21 05:13] LABS: HEMATOCRIT 21.7 % (37.0-47.0); HEMOGLOBIN 7.2 gm/dL (12.0-15.0); MCH 33.3 pg (26.0-34.0); MCHC 33.3 g/dL (28.0-37.0); MCV 99.8 fL (80.0-100.0); MPV 10.7 fl. (7.2-11.1); RBC 2.18 mil/uL (4.20-5.00); RDW-CV 27.9 % (10.5-14.5); WBC 9.6 thou/uL (4.0-11.0)
[2018-03-21 05:43] LABS: APTT 39.2 Seconds (25.0-31.3); INR 2.3; PROTIME 23.4 Seconds (9.20-11.50)
[2018-03-21 06:06] LABS: ALBUMIN 3.3 g/dL (3.4-5.0); CALCIUM 8.9 mg/dL (8.5-10.1); CREATININE 0.3 mg/dL (0.6-1.3); MAGNESIUM 1.9 mg/dL (1.8-2.4); POTASSIUM 3.4 mmol/L (3.5-5.1); TOTAL BILIRUBIN 17.7 mg/dL (<0.1-1.0); TOTAL PROTEIN 4.8 g/dL (6.4-8.2)
[2018-03-21 10:27] LABS: POTASSIUM 3.8 mmol/L (3.5-5.1)
[2018-03-21 10:28] LABS: TOTAL PROTEIN 4.9 g/dL (6.4-8.2)
[2018-03-21 15:56] LABS: INR 2.2; PROTIME 22.7 Seconds (9.20-11.50)
[2018-03-21 16:19] LABS: INR 2.3; PROTIME 23.1 Seconds (9.20-11.50)
[2018-03-21 17:52] LABS: BF RBC 3355 /mm3; TOTAL CELL COUNT 47 /mm3
[2018-03-21 18:02] LABS: COLOR AMBER; TOTAL VOLUME 1800 ml
[2018-03-21 18:03] LABS: CLARITY CLEAR
[2018-03-21 18:06] LABS: BF LYMPHOCYTES 42 %; BF MONOCYTES 5 %; BF POLYS 53 %
[2018-03-21 18:07] LABS: SOURCE ASCITES
[2018-03-22] VITALS (26 sets, daily range): BP systolic 86–111; BP diastolic 47–78
[2018-03-22 03:54] LABS: MCH 33.8 pg (26.0-34.0); MCHC 34.3 g/dL (28.0-37.0); MCV 98.6 fL (80.0-100.0); MPV 11.2 fl. (7.2-11.1); RBC 2.02 mil/uL (4.20-5.00); RDW-CV 28.3 % (10.5-14.5); WBC 7.5 thou/uL (4.0-11.0)
[2018-03-22 03:58] LABS: HEMATOCRIT 19.9 % (37.0-47.0); HEMOGLOBIN 6.8 gm/dL (12.0-15.0)
[2018-03-22 04:11] LABS: ALBUMIN 3.2 g/dL (3.4-5.0); CALCIUM 8.8 mg/dL (8.5-10.1); CREATININE 0.4 mg/dL (0.6-1.3); MAGNESIUM 1.9 mg/dL (1.8-2.4); POTASSIUM 4.2 mmol/L (3.5-5.1); TOTAL BILIRUBIN 17.3 mg/dL (<0.1-1.0); TOTAL PROTEIN 4.8 g/dL (6.4-8.2)
[2018-03-22 04:12] LABS: APTT 37.4 Seconds (25.0-31.3); INR 2.3; PROTIME 23.9 Seconds (9.20-11.50)
[2018-03-23] VITALS (24 sets, daily range): BP systolic 88–115; BP diastolic 50–73
[2018-03-23 02:43] LABS: HEMATOCRIT 25.2 % (37.0-47.0); HEMOGLOBIN 8.6 gm/dL (12.0-15.0); MCH 33.3 pg (26.0-34.0); MCHC 34.1 g/dL (28.0-37.0); MCV 97.5 fL (80.0-100.0); MPV 11.3 fl. (7.2-11.1); RBC 2.58 mil/uL (4.20-5.00); RDW-CV 26.5 % (10.5-14.5); WBC 10.6 thou/uL (4.0-11.0)
[2018-03-23 03:22] LABS: ALBUMIN 3.1 g/dL (3.4-5.0); CREATININE 0.5 mg/dL (0.6-1.3); POTASSIUM 3.8 mmol/L (3.5-5.1); TOTAL PROTEIN 4.7 g/dL (6.4-8.2)
[2018-03-23 11:12] LABS: BODY FLUID PROTEIN 1.6 g/dL (())
[2018-03-24] VITALS (26 sets, daily range): BP systolic 83–117; BP diastolic 49–77
[2018-03-24 03:23] LABS: HEMATOCRIT 22.9 % (37.0-47.0); HEMOGLOBIN 7.8 gm/dL (12.0-15.0); MPV 11.3 fl. (7.2-11.1); RBC 2.36 mil/uL (4.20-5.00); RDW-CV 26.7 % (10.5-14.5); WBC 8.8 thou/uL (4.0-11.0)
[2018-03-24 03:53] LABS: ALBUMIN 3.2 g/dL (3.4-5.0); CALCIUM 8.9 mg/dL (8.5-10.1); CREATININE 0.6 mg/dL (0.6-1.3); MAGNESIUM 2.2 mg/dL (1.8-2.4); POTASSIUM 3.9 mmol/L (3.5-5.1); TOTAL BILIRUBIN 16.3 mg/dL (<0.1-1.0); TOTAL PROTEIN 4.3 g/dL (6.4-8.2)
[2018-03-24 06:52] LABS: BE 0.7 mmol/L (-2 to +3); HCO3 24.2 mmol/L (22.0-26.0); PO2 122.2 mmHg (75.0-100.0)
[2018-03-24 12:13] LABS: SOURCE ABDOMINAL
[2018-03-25] VITALS (43 sets, daily range): BP systolic 64–126; BP diastolic 28–93
[2018-03-25 03:24] LABS: HEMATOCRIT 25.4 % (37.0-47.0); HEMOGLOBIN 8.7 gm/dL (12.0-15.0); MCH 33.4 pg (26.0-34.0); MCHC 34.2 g/dL (28.0-37.0); MCV 97.7 fL (80.0-100.0); MPV 11.9 fl. (7.2-11.1); RBC 2.6 mil/uL (4.20-5.00); RDW-CV 27.6 % (10.5-14.5); WBC 12.8 thou/uL (4.0-11.0)
[2018-03-25 03:56] LABS: ALBUMIN 3.5 g/dL (3.4-5.0); CALCIUM 9.2 mg/dL (8.5-10.1); CREATININE 0.5 mg/dL (0.6-1.3); MAGNESIUM 2.2 mg/dL (1.8-2.4); POTASSIUM 3.8 mmol/L (3.5-5.1); TOTAL BILIRUBIN 18.7 mg/dL (<0.1-1.0)
[2018-03-25 11:22] LABS: HEMATOCRIT 19.7 % (37.0-47.0); HEMOGLOBIN 6.7 gm/dL (12.0-15.0)
[2018-03-25 18:02] LABS: ABSOLUTE LYMPHOCYTES 0.3 thou/uL (0.8-5.3); ABSOLUTE MONOCYTES 0.6 thou/uL (0.0-1.2); ABSOLUTE NEUTROPHILS 11.5 thou/uL (1.6-8.1); BASOPHILS 0.3 %; EOSINOPHILS 0.1 %; LYMPHOCYTES 2.5 %; MCHC 33.7 g/dL (28.0-37.0); MCV 94.9 fL (80.0-100.0); MPV 12.1 fl. (7.2-11.1); NUCLEATED RBCS 0 /100WBC; POLYS 92.1 %; RBC 1.37 mil/uL (4.20-5.00); RDW-CV 15.1 % (10.5-14.5); WBC 12.5 thou/uL (4.0-11.0)
[2018-03-25 18:05] LABS: HEMOGLOBIN 4.4 gm/dL (12.0-15.0); PLATELET COUNT* 49 thou/uL (150-400)
[2018-03-25 19:44] LABS: HEMATOCRIT 17.3 % (37.0-47.0)
[2018-03-25 21:36] LABS: HEMATOCRIT 13.9 % (37.0-47.0); HEMOGLOBIN 4.7 gm/dL (12.0-15.0)
[2018-03-25 21:45] LABS: INR 2.7; PROTIME 27.2 Seconds (9.20-11.50)
[2018-03-26] VITALS (13 sets, daily range): BP systolic 91–118; BP diastolic 50–71
[2018-03-26 00:17] LABS: CALCIUM 7.1 mg/dL (8.5-10.1); CREATININE 1.2 mg/dL (0.6-1.3); POTASSIUM 4.6 mmol/L (3.5-5.1)
[2018-03-26 00:23] LABS: INR 2.5; PROTIME 25.8 Seconds (9.20-11.50)
[2018-03-26 04:44] LABS: INR 1.9; PROTIME 19.5 Seconds (9.20-11.50)
[2018-03-26 04:53] LABS: ALBUMIN 2.2 g/dL (3.4-5.0); CALCIUM 7.3 mg/dL (8.5-10.1); CREATININE 1.1 mg/dL (0.6-1.3); MAGNESIUM 1.7 mg/dL (1.8-2.4); POTASSIUM 4.2 mmol/L (3.5-5.1); TOTAL PROTEIN 3.5 g/dL (6.4-8.2)
[2018-03-26 05:08] LABS: HEMATOCRIT 19.7 % (37.0-47.0); HEMOGLOBIN 6.7 gm/dL (12.0-15.0)
[2018-03-26 09:16] LABS: HEMATOCRIT 21.7 % (37.0-47.0); HEMOGLOBIN 7.6 gm/dL (12.0-15.0)
--- NOTE | 2018-03-26 11:23 | CON ---
[address] [address] CONSULTATION Name: CARLOS KELLER Room: [address] IN .R.#: [id number] Admission: 03/08/18 Attend Phys: Francisco Taylor MD Discharge: Date of : 81 Report #: [id number] THIS REPORT FOR: //name// CC: Ermelinda Taylor DATE OF SERVICE: 03/08/2018 HISTORY OF PRESENT ILLNESS: This is a 32-year-old female who presented to the hospital with progressive abdominal distention. The patient reports that at baseline, she drinks about 1 liter of wine a day. She has been doing this for a month and prior to this, she was drinking a fifth of vodka a day for the last 5-6 years. The and parents are present at bedside and they report that she is actually understating the volume of her alcohol intake. The patient reports that she began noticing progressive distention of her abdominal pain over the last week. She reports associated abdominal pain, fever and chills. The patient reports yesterday she began having episodes of nausea and vomiting and vomited 10 times over the course of the day. She then presented to the hospital this morning at 11:00 a.m. The patient reports associated drowsiness and episodes of confusion. The patient denies any prior episodes of hematemesis, confusion, loss of consciousness. PAST MEDICAL HISTORY: The patient reports history of hypothyroidism for which she takes Synthroid. PAST SURGICAL HISTORY: The patient had an ankle surgery several years back. SOCIAL HISTORY: As mentioned before, she takes one bottle of wine per day and she claims she smokes 1/2 pack of cigarettes per day. She denies any recreational drug use. REVIEW OF SYSTEMS: Comprehensive 10-point review of systems was performed and is positive for confusion, abdominal pain, abdominal distention, nausea, vomiting, and jaundice. PHYSICAL EXAMINATION: VITAL SIGNS: Temperature 36.8, pulse rate 105, respirations 15, blood pressure 102/64, pulse oximetry 100% on room air. GENERAL: The patient is alert, but somnolent and appears to slip into loss of consciousness intermittently while speaking. She appears weak, malnourished and cachectic. HEENT: Sclerae are icteric and spider angiomata are noted all over the neck and upper extremities. Tongue appears swollen, but there is no congestion. LUNGS: [place] [address] CONSULTATION Name: CARLOS KELLER Room: [address]#: [id number] Admission: 03/08/18 Attend Phys: Francisco Taylor MD Discharge: Date of : 81 Report #: [id number] CARDIOVASCULAR: Rate and rhythm regular. S1, S2 present. ABDOMEN: Soft, distended, fluid thrill present. There is diffuse tenderness to palpation all over. Organomegaly cannot be clearly identified. There is no left supraclavicular lymph node present. EXTREMITIES: Pitting edema is present in both lower extremities. NEUROLOGIC: Asterixes is present. Exam is otherwise nonfocal. LABORATORY DATA: WBC count 18.3, hemoglobin 9.2, hematocrit 26.5, platelet count 131. INR 2.1. Sodium 107, potassium 3.9, chloride 71, bicarbonate 34, BUN 4, creatinine 0.5, total bilirubin 10.4, direct bilirubin 8.5, AST 341, ALT 66, alkaline phosphatase 305, total protein 5.9. TSH 0.05, free T4 is elevated at 12.5. Abdominal paracentesis: Fluid WBC 51, fluid RBC 219, total glucose, protein, albumin and fluid LDH pending. Hepatitis serology is pending. IMAGING: Abdominal CT: This demonstrates hepatomegaly with possible diffuse liver edema upon infiltration. There is recanalization of the paraumbilical vein consistent with portal hypertension. Diffuse extensive edema of the wall of the stomach as well as distal esophagus. This could be related to ____ change. There is no evidence of pneumatosis. Other causes of wall edema such as infiltration of ____ among others are not excluded. Diffuse colonic wall edema and thickening without pneumatosis. This could be related to colitis versus pseudomembranous colitis. Other cause of edema is excluded as well. Moderate ascites. Bilateral pulmonary infiltrates. Basilar pulmonary infiltrates and low density in the caudate lobe of liver, most likely artifact. Follow up could be obtained. Possible gallstone. ASSESSMENT AND PLAN: 1. This is a 32-year-old female with history of heavy alcohol abuse who is presenting with progressive distention of abdomen along with abdominal pain. The patient appears to have quite possibly end-stage liver disease with superimposed alcoholic hepatitis from years of heavy alcohol abuse. 2. Hyponatremia. The patient appears to have severe and profound hyponatremia. I suspect this is from dehydration and hypovolemia. Careful with repletion of sodium with frequent sodium checks should be performed. However, giving her fluid may result in worsening of her edema and ascites and therefore, I will put her on albumin 50 grams per day. 3. Altered mental status. I suspect this is related to hepatic encephalopathy and I have started the patient on rifaximin and lactulose. 4. Portal hypertension. The patient reports some coffee-ground emesis. Her hemoglobin is low. She will need upper endoscopy for evaluation, but at this time, her electrolyte abnormalities are so profound that the patient will not be able to tolerate sedation for an upper endoscopy examination. 5. Alcoholic hepatitis. It is quite possible that the patient has alcoholic hepatitis. I will wait for the cultures to return for 48 hours and if they are negative, then we can start her on steroids as her discriminant [place] [address] CONSULTATION Name: CARLOS KELLER Room: [address] IN [facility].#: [id number] Admission: 03/08/18 Attend Phys: Francisco Taylor MD Discharge: Date of : 81 Report #: [id number] 6. Ascites. The patient has moderate volume ascites. For now, we will continue to monitor it. A paracentesis has been performed and there does not appear to be any spontaneous bacterial peritonitis. 7. Elevated WBC count. I would continue with antibiotic coverage for now, but this can also be seen in alcoholic hepatitis without evidence of any ongoing infection. DISPOSITION: Overall, the patient appears to be critically ill. This was conveyed to the patient's parents who were there at her bedside. Her best chance that long-term recovery appears to be complete abstinence from alcohol, which will enable her to get on to a transplant list. <ELECTRONICALLY SIGNED> By: Peterson Gonzalez MD 03/26/18 1123 [id number] MD lynn Anaya
[2018-03-27 08:17] VITALS: BP 137/73
[2018-03-27 10:58] VITALS: BP 137/73
[2018-03-27] MEDS ORDERED: ATIVAN1 MG PO (11:47)
[2018-03-27] MEDS ORDERED: MSL20MG/ML PO (11:49)
[2018-03-27] MEDS ORDERED: XIFAXAN550 M1 PO (11:54)
[2018-03-27 12:05] VITALS: BP 137/73
== END 2018-03-27 12:04 | disposition hospice, home (50) | DRG 870 ==
LOC: M.ERS 10:30 → M.ICU 11:59 → M.TBA-ER 11:59 → M.ICU 12:18
PROVIDERS: Emergency Medicine Emergency Medical Services; Family Medicine; Internal Medicine; Internal Medicine Gastroenterology; Internal Medicine Nephrology; Internal Medicine Pulmonary Disease; Radiology Diagnostic Radiology; ADMIT Internal Medicine
PROC: 0W9G3ZZ Drainage of Peritoneal Cavity, Percutaneous Approach (ICD-10-PCS; principal; 2018-03-08)
PROC: 30233M1 Transfusion of Nonautologous Plasma Cryoprecipitate into Peripheral Vein, Percutaneous Approach (ICD-10-PCS; principal; 2018-03-08)
PROC: 30233K1 Transfusion of Nonautologous Frozen Plasma into Peripheral Vein, Percutaneous Approach (ICD-10-PCS; principal; 2018-03-08)
PROC: 30233L1 Transfusion of Nonautologous Fresh Plasma into Peripheral Vein, Percutaneous Approach (ICD-10-PCS; principal; 2018-03-08)
PROC: 5A09357 Assistance with Respiratory Ventilation, Less than 24 Consecutive Hours, Continuous Positive Airway Pressure (ICD-10-PCS; 2018-03-09)
PROC: 02HV33Z Insertion of Infusion Device into Superior Vena Cava, Percutaneous Approach (ICD-10-PCS; 2018-03-09)
PROC: 5A09357 Assistance with Respiratory Ventilation, Less than 24 Consecutive Hours, Continuous Positive Airway Pressure (ICD-10-PCS; 2018-03-10)
PROC: 0BH18EZ Insertion of Endotracheal Airway into Trachea, Via Natural or Artificial Opening Endoscopic (ICD-10-PCS; 2018-03-10)
PROC: 5A1955Z Respiratory Ventilation, Greater than 96 Consecutive Hours (ICD-10-PCS; 2018-03-10)
PROC: 0W9G3ZZ Drainage of Peritoneal Cavity, Percutaneous Approach (ICD-10-PCS; 2018-03-19)
PROC: 0W9G3ZZ Drainage of Peritoneal Cavity, Percutaneous Approach (ICD-10-PCS; 2018-03-21)
PROC: 0DJ08ZZ Inspection of Upper Intestinal Tract, Via Natural or Artificial Opening Endoscopic (ICD-10-PCS; 2018-03-25)
PROC: 30233R1 Transfusion of Nonautologous Platelets into Peripheral Vein, Percutaneous Approach (ICD-10-PCS; 2018-03-25)
PROC: B4121ZZ Fluoroscopy of Hepatic Artery using Low Osmolar Contrast (ICD-10-PCS; 2018-03-25)
PROC: B4141ZZ Fluoroscopy of Superior Mesenteric Artery using Low Osmolar Contrast (ICD-10-PCS; 2018-03-25)
PROC: 30233N1 Transfusion of Nonautologous Red Blood Cells into Peripheral Vein, Percutaneous Approach (ICD-10-PCS; 2018-03-25)
PROC: B4151ZZ Fluoroscopy of Inferior Mesenteric Artery using Low Osmolar Contrast (ICD-10-PCS; 2018-03-25)
DX: A41.9 Sepsis, unspecified organism (principal); G92 Toxic encephalopathy; E43 Unspecified severe protein-calorie malnutrition; J69.0 Pneumonitis due to inhalation of food and vomit; J96.21 Acute and chronic respiratory failure with hypoxia; I85.11 Secondary esophageal varices with bleeding; K29.71 Gastritis, unspecified, with bleeding; E87.1 Hypo-osmolality and hyponatremia; E87.3 Alkalosis; D68.9 Coagulation defect, unspecified; K76.6 Portal hypertension; D62 Acute posthemorrhagic anemia; E87.2 Acidosis; K56.7 Ileus, unspecified; E87.0 Hyperosmolality and hypernatremia; R65.10 Systemic inflammatory response syndrome (SIRS) of non-infectious origin without acute organ dysfunction; E03.9 Hypothyroidism, unspecified; F17.210 Nicotine dependence, cigarettes, uncomplicated; E87.6 Hypokalemia; E87.8 Other disorders of electrolyte and fluid balance, not elsewhere classified; F10.10 Alcohol abuse, uncomplicated; I95.9 Hypotension, unspecified; K70.11 Alcoholic hepatitis with ascites; D72.829 Elevated white blood cell count, unspecified; R91.8 Other nonspecific abnormal finding of lung field; E66.9 Obesity, unspecified; K70.40 Alcoholic hepatic failure without coma; D69.6 Thrombocytopenia, unspecified; E83.42 Hypomagnesemia; E86.0 Dehydration; R74.0 Nonspecific elevation of levels of transaminase and lactic acid dehydrogenase [LDH]; K70.31 Alcoholic cirrhosis of liver with ascites; N18.9 Chronic kidney disease, unspecified; K44.9 Diaphragmatic hernia without obstruction or gangrene; K31.89 Other diseases of stomach and duodenum; Z79.899 Other long term (current) drug therapy; Z68.26 Body mass index [BMI] 26.0-26.9, adult